=== PATIENT | female | born 1950 | race Asian ===

== ENCOUNTER 2022-12-22 05:30 | Emergency (ER) | payer SELFPAY ==
[~2022-12-22] VITALS: Ht 167.6 cm; Wt 63.0 kg
[2022-12-22 05:56] LABS: BASOPHILS % 0.6 % (0.0-2.0); HEMATOCRIT. 38.6 % (36.0-48.0); HEMOGLOBIN. 12.9 g/dL (12.0-16.0); LYMPHOCYTES % 25.7 % (20.0-50.0); MEAN CORPUSCULAR HEMOGLOBIN 28.7 pg (28.0-32.0); MEAN CORPUSCULAR VOLUME 85.7 fL (81.0-99.0); MONOCYTES % 8.5 % (2.0-8.0); NEUTROPHILS % 62.2 % (40.0-76.0); PLATELET 247 x1000/uL (130-400); RED BLOOD CELL COUNT 4.51 mill/uL (4.2-5.4); RED CELL DISTRIBUTION WIDTH 13.9 % (11.6-14.6)
[2022-12-22 06:04] LABS: CHLORIDE 105 mEq/L (98-107)
[2022-12-22 06:10] LABS: INR 0.9; PROTHROMBIN TIME 10.2 sec (9.6-11.0)
[2022-12-22 06:13] LABS: ETHANOL BLOOD < 10 mg/dL
[2022-12-22] MEDS ORDERED: IOHEXOL-350 100 ML BOTTLE ONE (07:02)
[2022-12-22] MEDS ORDERED: ONDANSETRON HCL 4MG/2ML INJ IV PRN (12:45)
[2022-12-22] MEDS ORDERED: IPRATROPIUM/ALBUTEROL 0.5-3(2.5)MG/3ML NEB HHN PRN (12:45)
[2022-12-22] MEDS ORDERED: CLONIDINE 0.1MG TABLET PO PRN (12:45)
[2022-12-22] MEDS ORDERED: ACETAMINOPHEN 325MG TABLET PO PRN ×2 (12:45)
[2022-12-22] MEDS ORDERED: MAGNESIUM/ALUMINUM HYDROXIDE/SIMETHICONE 30ML UDC PO PRN (12:45)
[2022-12-22] MEDS ORDERED: DEXTROSE 50% WATER 50ML SYRINGE IV PRN (12:45)
[2022-12-22] MEDS ORDERED: INSULIN LISPRO 100 UNITS/ML SUBCUT SCH ×2 (13:00→13:20)
[2022-12-22] MEDS ORDERED: BLOOD SUGAR DIAGNOSTIC STRIP TEST SCH (13:00)
[2022-12-22] MEDS ORDERED: ENOXAPARIN 30MG/0.3ML SYR SUBCUT SCH (13:00)
[2022-12-22] MEDS ORDERED: METOPROLOL TARTRATE 25MG TABLET PO NR (13:00)
[2022-12-22 14:00] VITALS: BP 155/88
[2022-12-22 14:54] LABS: FERRITIN 61 ng/mL (10-291)
[2022-12-22 15:03] LABS: VITAMIN B12 SERUM 625 pg/mL (211-911)
[2022-12-22] MEDS ORDERED: FAMOTIDINE 20MG/2ML VIAL IV SCH (21:00)
[2022-12-22] MEDS ORDERED: INSULIN GLARGINE 100 UNITS/ML SUBCUT SCH (22:00)
[2022-12-23] MEDS ORDERED: AMLODIPINE 10MG TABLET PO SCH (09:00)
== END 2022-12-22 14:13 | disposition left against medical advice (07) ==
LOC: ER 05:30 → CANBEDREQ 14:29
DX: R77.8 Other specified abnormalities of plasma proteins (principal); R55 Syncope and collapse
CPT/HCPCS: 36415; 70450; 70496; 70498; 71045; 80053; 80320; 82607; 82728; 82746; 82962; 83036; 84145; 84484; 85025; 85610; 93005; 93970; 96372; 99291; J1650; J1815; Q9967; G0480

== ENCOUNTER 2023-11-12 02:20 | Inpatient (IN) | payer MEDICAID ==
[~2023-11-12] VITALS: Ht 157.5 cm; Wt 53.5 kg
[2023-11-12] MEDS ORDERED: IPRATROPIUM BROMIDE (0.02%) 0.5MG/2.5ML NEB HHN STA (02:39)
[2023-11-12] MEDS ORDERED: ALBUTEROL (0.083%) 2.5MG/3ML NEB HHN STA (02:39)
[2023-11-12 03:52] LABS: BASOPHILS % 0.8 % (0.0-2.0); EOSINOPHILS % 0.9 % (0.0-5.0); HEMATOCRIT. 35.1 % (36.0-48.0); HEMOGLOBIN. 11.7 g/dL (12.0-16.0); LYMPHOCYTES % 13.3 % (20.0-50.0); MEAN CORPUSCULAR HEMOGLOBIN 28.6 pg (28.0-32.0); MEAN CORPUSCULAR HGB CONC 33.3 g/dL (31.0-37.0); MEAN PLATELET VOLUME 9.2 fl (7.4-10.4); PLATELET 216 x1000/uL (130-400); RED BLOOD CELL COUNT 4.09 mill/uL (4.2-5.4); RED CELL DISTRIBUTION WIDTH 14.6 % (11.6-14.6); WHITE BLOOD COUNT 13.2 x1000/uL (4.5-11.0)
[2023-11-12 03:53] LABS: BG CARBOXYHEMOGLOBIN 0.4 % (0.5-1.5); BG DEOXYHEMOGLOBIN 7.2 % (0.0-5.0); BG METHEMOGLOBIN 0.2 % (0.0-1.5); BG OXYGEN SATURATION 92.8 % (92.0-98.5); BG OXYHEMOGLOBIN 92.2 % (94.0-97.0); BG PCO2 32.9 mmHg (35.0-45.0); BG PO2 68.5 mmHg (75.0-100.0); BG SAMPLE SITE RIGHT BRACHIAL; BG TOTAL HEMOGLOBIN 12.2 g/dL (12.0-18.0); BG VENT MODE ROOM AIR
[2023-11-12 04:06] LABS: INR 0.9; PARTIAL THROMBOPLASTIN TIME 23.6 sec (23.4-31.0); PROTHROMBIN TIME 10.4 sec (9.6-11.0)
[2023-11-12] MEDS ORDERED: ALBUTEROL (0.083%) 2.5MG/3ML NEB HHN NR (04:15)
[2023-11-12 04:19] LABS: LACTIC ACID 2.6 mmol/L (0.4-2.0)
[2023-11-12 04:20] VITALS: PULSE 118; RESP 22; O2SAT 99
[2023-11-12] MEDS ORDERED: IPRATROPIUM BROMIDE (0.02%) 0.5MG/2.5ML NEB HHN NR (04:30)
[2023-11-12 04:50] LABS: ALANINE AMINOTRANSFERASE 22 IU/L (10-49); ALBUMIN 4.4 g/dL (3.2-4.8); ASPARTATE AMINOTRANSFERASE 39 IU/L (<34); BILIRUBIN TOTAL 0.4 mg/dL (0.1-1.0); CALCIUM 8.8 mg/dL (8.7-10.4); CARBON DIOXIDE 18 mEq/L (21-32); CHLORIDE 105 mEq/L (98-107); CREATININE 1.8 mg/dL (0.6-1.0); GLUCOSE 338 mg/dL (70-105); POTASSIUM 4.1 mEq/L (3.5-5.1); PROTEIN TOTAL 8.4 g/dL (6.0-8.3); SODIUM 135 mEq/L (136-145); UREA NITROGEN BLOOD 30 mg/dL (9-23)
[2023-11-12 04:56] LABS: ETHANOL BLOOD < 10 mg/dL (<10)
[2023-11-12 05:01] LABS: TROPONIN I HIGH SENSITIVITY 208 ng/L (3.0-34)
[2023-11-12] MEDS: ASPIRIN 325MG EC TABLET PO NR (05:15)
[2023-11-12] MEDS: HEPARIN 25,000 UNITS PREMIX 250 ML IV SCH (05:15)
[2023-11-12] MEDS: HEPARIN 60 UNITS/KG BOLUS IV NR (06:12)
[2023-11-12] MEDS ORDERED: INSULIN REGULAR (HUMULIN R) 300UNITS/3ML VIAL SUBCUT NR (06:15)
[2023-11-12] MEDS ORDERED: HEPARIN BOLUS PRN aPTT 30-44 IV (11:30)
[2023-11-12] MEDS ORDERED: HEPARIN BOLUS PRN aPTT <30 IV (11:30)
[2023-11-12 12:00] VITALS: BP 148/88; PULSE 106; RESP 18; TEMP 97.6
[2023-11-12] MEDS ORDERED: IPRATROPIUM/ALBUTEROL 0.5-3(2.5)MG/3ML NEB HHN PRN (12:00)
[2023-11-12] MEDS ORDERED: NITROGLYCERIN 0.4MG TABLET SL SL PRN (12:00)
[2023-11-12] MEDS ORDERED: ACETAMINOPHEN 325MG TABLET PO PRN ×2 (12:00)
[2023-11-12] MEDS ORDERED: DEXTROSE 50% WATER 50ML SYRINGE IV PRN (12:00)
[2023-11-12] MEDS: BLOOD SUGAR DIAGNOSTIC STRIP TEST SCH (12:40)
[2023-11-12] MEDS: PIPERACILLIN/TAZO 3.375G/50ML 50 ML IV SCH (13:00)
[2023-11-12] MEDS: INSULIN LISPRO 100 UNITS/ML SUBCUT SCH (14:04)
[2023-11-12 14:20] VITALS: BP 130/62; PULSE 110; RESP 20; TEMP 97.3
[2023-11-12] MEDS: METOPROLOL TARTRATE 25MG TABLET PO SCH (14:30)
[2023-11-12] MEDS ORDERED: FUROSEMIDE 20MG/2ML VIAL IVP SCH (14:45)
[2023-11-12 16:00] VITALS: BP 112/70; PULSE 120; RESP 18; TEMP 97.9
[2023-11-12 17:37] LABS: BETA HYDROXYBUTYRATE 0.3 mMol/L (0.0-0.3)
[2023-11-12] MEDS: ENOXAPARIN 60MG/0.6ML SYR SUBCUT SCH (19:05)
[2023-11-12 20:00] VITALS: BP 126/83; PULSE 114; RESP 18; TEMP 97.9
[2023-11-12] MEDS: ATORVASTATIN CALCIUM 40MG TABLET PO SCH (20:46)
[2023-11-12] MEDS: AMIODARONE HCL 200 MG TABLET PO SCH (21:11)
[2023-11-13] VITALS: BP 130/67; PULSE 112; RESP 18; TEMP 97.6
[2023-11-13 04:00] VITALS: BP 105/65; PULSE 108; RESP 18; TEMP 97.8
[2023-11-13 05:53] LABS: EOSINOPHILS % 2.3 % (0.0-5.0); HEMATOCRIT. 34.9 % (36.0-48.0); HEMOGLOBIN. 11.5 g/dL (12.0-16.0); LYMPHOCYTES % 17.8 % (20.0-50.0); MEAN CORPUSCULAR HEMOGLOBIN 28.5 pg (28.0-32.0); MEAN CORPUSCULAR HGB CONC 32.9 g/dL (31.0-37.0); MEAN CORPUSCULAR VOLUME 86.5 fL (81.0-99.0); MEAN PLATELET VOLUME 9.2 fl (7.4-10.4); MONOCYTES % 8.2 % (2.0-8.0); NEUTROPHILS % 70.7 % (40.0-76.0); PLATELET 219 x1000/uL (130-400); RED BLOOD CELL COUNT 4.03 mill/uL (4.2-5.4); RED CELL DISTRIBUTION WIDTH 15.1 % (11.6-14.6); WHITE BLOOD COUNT 11.1 x1000/uL (4.5-11.0)
[2023-11-13 06:19] LABS: CALCIUM 9.1 mg/dL (8.7-10.4); CARBON DIOXIDE 18 mEq/L (21-32); CHLORIDE 107 mEq/L (98-107); CREATININE 1.8 mg/dL (0.6-1.0); GLUCOSE 258 mg/dL (70-105); IRON 51 ug/dL (50-170); POTASSIUM 4.4 mEq/L (3.5-5.1); SODIUM 135 mEq/L (136-145); THYROID STIMULATING HORMONE 3.72 uIU/mL (0.55-4.78); TOTAL IRON BINDING CAPACITY 283 ug/dl (250-425); UREA NITROGEN BLOOD 28 mg/dL (9-23)
[2023-11-13 08:00] VITALS: BP 133/58; PULSE 106; RESP 18; TEMP 98.8
[2023-11-13 08:01] LABS: TROPONIN I HIGH SENSITIVITY 222 ng/L (3.0-34)
[2023-11-13] MEDS: ASPIRIN 81MG TABLET PO SCH (09:32)
[2023-11-13 10:28] LABS: FOLIC ACID (FOLATE) SERUM > 20.00 ng/mL (>5.38); VITAMIN B12 SERUM 620 pg/mL (211-911)
[2023-11-13] MEDS: AMIODARONE HCL 200 MG TABLET PO NR (11:03)
[2023-11-13] MEDS ORDERED: LIDOCAINE 2% 6ML GLYDO MM ONE (11:15)
[2023-11-13] MEDS ORDERED: TETRACAINE/BENZOCAINE/BUTAMBEN 20 GM SPRAY MM ONE (11:15)
[2023-11-13] MEDS ORDERED: FENTANYL CITRATE/PF 50MCG/ML 2ML VIAL ONE (11:54)
[2023-11-13] MEDS ORDERED: MIDAZOLAM HCL 2 MG/2 ML VIAL ONE ×2 (11:55→12:26)
[2023-11-13 12:00] VITALS: BP 136/70; PULSE 89; RESP 18; TEMP 98.7
[2023-11-13 16:00] VITALS: BP 124/76; PULSE 80; RESP 16; TEMP 98
[2023-11-13] MEDS: APIXABAN 2.5 MG TABLET PO SCH (17:35)
[2023-11-13 20:00] VITALS: BP 119/68; PULSE 78; RESP 18; TEMP 97.2
[2023-11-14] VITALS: BP 148/64; PULSE 69; RESP 20; TEMP 97.8
[2023-11-14 04:00] VITALS: BP 135/64; PULSE 67; RESP 18; TEMP 97.6
[2023-11-14 07:22] LABS: BASOPHILS % 0.4 % (0.0-2.0); EOSINOPHILS % 1.4 % (0.0-5.0); HEMATOCRIT. 33.9 % (36.0-48.0); HEMOGLOBIN. 11.2 g/dL (12.0-16.0); MEAN CORPUSCULAR HEMOGLOBIN 28.8 pg (28.0-32.0); MEAN CORPUSCULAR HGB CONC 33.1 g/dL (31.0-37.0); MEAN CORPUSCULAR VOLUME 87.1 fL (81.0-99.0); MEAN PLATELET VOLUME 9.2 fl (7.4-10.4); MONOCYTES % 8.1 % (2.0-8.0); NEUTROPHILS % 76.1 % (40.0-76.0); PLATELET 211 x1000/uL (130-400); RED BLOOD CELL COUNT 3.89 mill/uL (4.2-5.4); RED CELL DISTRIBUTION WIDTH 15.1 % (11.6-14.6); WHITE BLOOD COUNT 10.4 x1000/uL (4.5-11.0)
[2023-11-14] MEDS: INSULIN LISPRO 100 UNITS/ML SUBCUT SCH (07:40)
[2023-11-14 07:42] LABS: CALCIUM 8.8 mg/dL (8.7-10.4); POTASSIUM 4.4 mEq/L (3.5-5.1)
[2023-11-14 08:00] VITALS: BP 147/77; PULSE 81; RESP 20; TEMP 97.8
[2023-11-14] MEDS ORDERED: AMIODARONE HCL 200 MG TABLET PO SCH (09:00)
[2023-11-14 11:28] VITALS: BP 127/66; PULSE 69; RESP 18; TEMP 97.8
[2023-11-14] MEDS ORDERED: ASPI-1160 PO (11:43)
[2023-11-14] MEDS ORDERED: METO-396 PO (11:43)
[2023-11-14] MEDS ORDERED: APIX2.5T PO (11:43)
[2023-11-14] MEDS ORDERED: LIP40 PO (11:43)
[2023-11-14] MEDS ORDERED: LIP40 MT (12:56)
[2023-11-14] MEDS ORDERED: APIX2.5T MT (12:56)
[2023-11-14] MEDS ORDERED: ASPI-1497 MT (12:56)
[2023-11-14] MEDS ORDERED: METO-396 MT (12:56)
[2023-11-14] MEDS ORDERED: [UNRECOGNIZED DRUG - OTHER] (13:19)
[2023-11-14] MEDS ORDERED: METO25TA6 PO (13:19)
[2023-11-14] MEDS ORDERED: [UNRECOGNIZED DRUG - OTHER] (13:19)
[2023-11-14 15:08] VITALS: BP 127/66; PULSE 69; TEMP 97.8; O2SAT 99
[2023-11-14 16:32] VITALS: BP 136/74; PULSE 74; RESP 18; TEMP 97.7
[2023-11-14] MEDS ORDERED: PIPERACILLIN/TAZO 3.375G/50ML 50 ML IV SCH (21:00)
[2023-11-18] MEDS ORDERED: DAPA10TA7 (18:20)
[2023-11-18] MEDS ORDERED: LINA5TAB PO (18:20)
== END 2023-11-14 16:20 | disposition home or self-care (01) | DRG 720 ==
LOC: ER 02:20 → 7WST 06:03
PROVIDERS: ADMIT Internal Medicine; ATTEND Internal Medicine
PROC: 5A2204Z Restoration of Cardiac Rhythm, Single (ICD-10-PCS; principal; 2023-11-13)
PROC: B24BZZ4 Ultrasonography of Heart with Aorta, Transesophageal (ICD-10-PCS; 2023-11-13)
DX: A41.9 Sepsis, unspecified organism (principal); J96.01 Acute respiratory failure with hypoxia; I21.4 Non-ST elevation (NSTEMI) myocardial infarction; I13.2 Hypertensive heart and chronic kidney disease with heart failure and with stage 5 chronic kidney disease, or end stage renal disease; E87.20 Acidosis, unspecified; J18.9 Pneumonia, unspecified organism; N17.9 Acute kidney failure, unspecified; N18.6 End stage renal disease; E87.1 Hypo-osmolality and hyponatremia; I48.3 Typical atrial flutter; J44.0 Chronic obstructive pulmonary disease with (acute) lower respiratory infection; E11.65 Type 2 diabetes mellitus with hyperglycemia; Z20.822 Contact with and (suspected) exposure to COVID-19; I50.9 Heart failure, unspecified; D64.9 Anemia, unspecified; E11.22 Type 2 diabetes mellitus with diabetic chronic kidney disease; I25.10 Atherosclerotic heart disease of native coronary artery without angina pectoris; I44.0 Atrioventricular block, first degree; Z99.2 Dependence on renal dialysis; Z79.01 Long term (current) use of anticoagulants; Z79.4 Long term (current) use of insulin; Z79.82 Long term (current) use of aspirin; Z79.84 Long term (current) use of oral hypoglycemic drugs; Z79.899 Other long term (current) drug therapy; Z95.1 Presence of aortocoronary bypass graft; I25.2 Old myocardial infarction
CPT/HCPCS: 36415; 36600; 71045; 80048; 80053; 80061; 80320; 82010; 82375; 82607; 82746; 82805; 82962; 83036; 83540; 83550; 83605; 83880; 84145; 84443; 84484; 85025; 87426; 87804; 92960; 93005; 93306; 93312; 94644; 99285; C1893; J1644; J1650; J1815; J2250; J2543; J3010; G0480

== ENCOUNTER → 2023-12-14 | Outpatient (CLI) | payer MEDICAID ==
[~2023-12-14] MED LIST: APIX2.5T MT; ASPI-1497 MT; DAPA10TA7; LINA5TAB PO; LIP40 MT; METO-396 MT; [UNRECOGNIZED DRUG - OTHER]; [UNRECOGNIZED DRUG - OTHER]
[2023-12-14 09:20] LABS: POTASSIUM 4.7 mEq/L (3.5-5.1)
[2023-12-14 09:21] LABS: CALCIUM 9.4 mg/dL (8.7-10.4)
[2023-12-14 09:25] LABS: CREATININE 1.8 mg/dL (0.6-1.0)
== END | disposition home or self-care (01) ==
LOC: LAB 08:18
PROVIDERS: ATTEND Internal Medicine Cardiovascular Disease
DX: I48.92 Unspecified atrial flutter (principal); I50.9 Heart failure, unspecified; N18.9 Chronic kidney disease, unspecified
CPT/HCPCS: 36415; 80048

== ENCOUNTER 2024-08-01 13:53 | Inpatient (IN) | payer OTHER ==
[~2024-08-01] VITALS: Ht 162.6 cm; Wt 60.8 kg
[~2024-08-01 13:53] MED LIST changes: +AMI2 PO; +HYDR50TA39 PO
[2024-08-01 15:14] LABS: BASOPHILS % 0.5 % (0.0-2.0); EOSINOPHILS % 0.8 % (0.0-5.0); HEMATOCRIT. 37.9 % (36.0-48.0); HEMOGLOBIN. 11.9 g/dL (12.0-16.0); LYMPHOCYTES % 10.5 % (20.0-50.0); MEAN CORPUSCULAR HGB CONC 31.4 g/dL (31.0-37.0); MEAN CORPUSCULAR VOLUME 86.1 fL (81.0-99.0); MEAN PLATELET VOLUME 8.4 fl (7.4-10.4); MONOCYTES % 9.4 % (2.0-8.0); NEUTROPHILS % 78.8 % (40.0-76.0); PLATELET 264 x1000/uL (130-400); RED CELL DISTRIBUTION WIDTH 16.5 % (11.6-14.6); WHITE BLOOD COUNT 10.1 x1000/uL (4.5-11.0)
[2024-08-01 15:18] LABS: CHLORIDE 111 mEq/L (98-107); POTASSIUM 5.2 mEq/L (3.5-5.1); SODIUM 143 mEq/L (136-145)
[2024-08-01 15:19] LABS: CALCIUM 9.5 mg/dL (8.7-10.4); CARBON DIOXIDE 24 mEq/L (21-32)
[2024-08-01 15:24] LABS: GLUCOSE 134 mg/dL (70-105); UREA NITROGEN BLOOD 36 mg/dL (9-23)
[2024-08-01 15:26] LABS: ALANINE AMINOTRANSFERASE 157 IU/L (10-49); ALBUMIN 4.2 g/dL (3.2-4.8); ASPARTATE AMINOTRANSFERASE 60 IU/L (<34); BILIRUBIN DIRECT 0.1 mg/dL (<=3.0)
[2024-08-01 15:27] LABS: BILIRUBIN TOTAL 0.3 mg/dL (0.1-1.0); PROTEIN TOTAL 7.5 g/dL (6.0-8.3)
[2024-08-01 15:29] LABS: THYROID STIMULATING HORMONE 6.06 uIU/mL (0.55-4.78)
[2024-08-01 15:48] LABS: CREATININE 2.4 mg/dL (0.6-1.0); TROPONIN I HIGH SENSITIVITY 134 ng/L (3.0-34)
[2024-08-01] MEDS ORDERED: FUROSEMIDE 100MG/10ML VIAL IV STA (15:49)
[2024-08-01] MEDS ORDERED: SODIUM ZIRCONIUM CYCLOSILICATE 10GM/PACKET PO ONE (16:00)
[2024-08-01] MEDS ORDERED: INSULIN REGULAR (HUMULIN R) 1000UNITS/10ML VIAL IV ONE (16:00)
[2024-08-01] MEDS ORDERED: ALBUTEROL (0.083%) 2.5MG/3ML NEB HHN ONE (16:00)
[2024-08-01] MEDS ORDERED: DEXTROSE 50% WATER 50ML SYRINGE IV ONE (16:00)
[2024-08-01] MEDS: FUROSEMIDE 40MG/4ML VIAL IV NR (16:15)
[2024-08-01 16:37] VITALS: PULSE 88; RESP 20
[2024-08-01] MEDS: ALBUTEROL (0.083%) 2.5MG/3ML NEB HHN NR (16:37)
[2024-08-01] MEDS: DEXTROSE 50% WATER 50ML SYRINGE IV NR (17:49)
[2024-08-01] MEDS: INSULIN REGULAR (HUMULIN R) 1000UNITS/10ML VIAL IV NR (17:49)
[2024-08-01] MEDS: CLOPIDOGREL 75MG TABLET PO ONE (17:55)
[2024-08-01] MEDS: ASPIRIN 325MG EC TABLET PO ONE (17:56)
[2024-08-01] MEDS: SODIUM ZIRCONIUM CYCLOSILICATE 10GM/PACKET PO NR (17:56)
[2024-08-01 22:15] VITALS: BP 141/78; PULSE 86; RESP 20; TEMP 36.8072
[2024-08-02] MEDS ORDERED: ONDANSETRON HCL 4MG/2ML INJ IV PRN (00:30)
[2024-08-02] MEDS ORDERED: ACETAMINOPHEN 325MG TABLET PO PRN (00:30)
[2024-08-02] MEDS ORDERED: IPRATROPIUM/ALBUTEROL 0.5-3(2.5)MG/3ML NEB HHN PRN (00:30)
[2024-08-02] MEDS ORDERED: MAGNESIUM/ALUMINUM HYDROXIDE/SIMETHICONE 30ML UDC PO PRN (00:30)
[2024-08-02] MEDS ORDERED: CLONIDINE 0.1MG TABLET PO PRN (00:30)
[2024-08-02] MEDS ORDERED: DOCUSATE SODIUM 100MG CAPSULE PO PRN (00:30)
[2024-08-02] MEDS ORDERED: HYDROCODONE/ACETAMINOPHEN 5/325MG TABLET PO PRN (00:30)
[2024-08-02] MEDS ORDERED: DEXTROSE 50% WATER 50ML SYRINGE IV PRN ×2 (02:15)
[2024-08-02 04:00] VITALS: BP 121/69; PULSE 89; RESP 18; TEMP 36.55848; O2SAT 97
[2024-08-02] MEDS: BLOOD SUGAR DIAGNOSTIC STRIP TEST SCH (06:05)
[2024-08-02 06:15] LABS: CLARITY URINE CLEAR (CLEAR); COLOR URINE YELLOW (YELLOW); GLUCOSE URINE 3+ (NEGATIVE); KETONES URINE NEGATIVE (NEGATIVE); LEUKOCYTE ESTERASE URINE NEGATIVE (NEGATIVE); NITRITE URINE NEGATIVE (NEGATIVE); OCCULT BLOOD URINE NEGATIVE (NEGATIVE); PH URINE 5.5 (4.5-8.0); PROTEIN URINE TRACE (NEGATIVE); SPECIFIC GRAVITY URINE 1.015 (1.005-1.030); UROBILINOGEN URINE 0.2 E.U./dL (0.2-1.0)
[2024-08-02 06:27] LABS: *AMPHETAMINES SCREEN URINE NEGATIVE (NEGATIVE); *BARBITURATES SCREEN URINE NEGATIVE (NEGATIVE); *BENZODIAZEPINES SCREEN URINE NEGATIVE (NEGATIVE); *COCAINE SCREEN URINE NEGATIVE (NEGATIVE); METHADONE URINE SCREEN NEGATIVE (NEGATIVE)
[2024-08-02 06:28] LABS: CANNABINOID URINE SCREEN NEGATIVE (NEGATIVE); ECSTASY MDMA SCREEN URINE NEGATIVE (NEGATIVE); OPIATES URINE SCREEN NEGATIVE (NEGATIVE); PHENCYCLIDINE URINE SCREEN NEGATIVE (NEGATIVE)
[2024-08-02 06:49] LABS: SQUAMOUS EPITHELIAL CELL URINE FEW /lpf (RARE/1+)
[2024-08-02 06:54] LABS: BACTERIA URINE NONE SEEN
[2024-08-02] MEDS: INSULIN LISPRO 100 UNITS/ML SUBCUT SCH (06:56)
[2024-08-02 08:00] VITALS: BP 127/67; PULSE 85; RESP 18; TEMP 36.114; O2SAT 99
[2024-08-02] MEDS: ENOXAPARIN 30MG/0.3ML SYR SUBCUT SCH ×2 (08:48→12:31)
[2024-08-02] MEDS: FUROSEMIDE 20MG/2ML VIAL IVP SCH (11:50)
[2024-08-02 12:00] VITALS: BP 123/73; PULSE 68; RESP 20; TEMP 36.22512; O2SAT 96
[2024-08-02] MEDS ORDERED: ENOXAPARIN 60MG/0.6ML SYR SUBCUT SCH (12:00)
[2024-08-02] MEDS ORDERED: NALOXONE HCL 0.4MG/ML VIAL IV PRN (14:15)
[2024-08-02 16:00] VITALS: BP 133/73; PULSE 85; RESP 18; TEMP 36.44736; O2SAT 99
[2024-08-02 17:19] LABS: CARBON DIOXIDE 25 mEq/L (21-32); CHLORIDE 109 mEq/L (98-107); POTASSIUM 4.3 mEq/L (3.5-5.1); SODIUM 143 mEq/L (136-145)
[2024-08-02 17:20] LABS: BASOPHILS % 0.5 % (0.0-2.0); CALCIUM 9.5 mg/dL (8.7-10.4); DIFFERENTIAL COMMENT 0; EOSINOPHILS % 1.1 % (0.0-5.0); HEMATOCRIT. 36.5 % (36.0-48.0); HEMOGLOBIN. 11.2 g/dL (12.0-16.0); LYMPHOCYTES % 11.2 % (20.0-50.0); MEAN CORPUSCULAR HEMOGLOBIN 26.4 pg (28.0-32.0); MEAN CORPUSCULAR HGB CONC 30.6 g/dL (31.0-37.0); MEAN CORPUSCULAR VOLUME 86.5 fL (81.0-99.0); MEAN PLATELET VOLUME 8.6 fl (7.4-10.4); MONOCYTES % 8.5 % (2.0-8.0); NEUTROPHILS % 78.7 % (40.0-76.0); PLATELET 262 x1000/uL (130-400); PROTHROMBIN TIME 11.4 sec (9.6-11.0); RED BLOOD CELL COUNT 4.22 mill/uL (4.2-5.4); RED CELL DISTRIBUTION WIDTH 16.3 % (11.6-14.6); WHITE BLOOD COUNT 11.5 x1000/uL (4.5-11.0)
[2024-08-02 17:23] LABS: CREATINE KINASE MB FRACTION 2.6 ng/mL (0.5-3.6)
[2024-08-02 17:24] LABS: CREATININE 2.3 mg/dL (0.6-1.0); GLUCOSE 138 mg/dL (70-105)
[2024-08-02 17:25] LABS: LDL CHOLESTEROL 51 mg/dL (5-100); TRIGLYCERIDE 76 mg/dL (0-150); UREA NITROGEN BLOOD 33 mg/dL (9-23)
[2024-08-02 17:26] LABS: ALANINE AMINOTRANSFERASE 132 IU/L (10-49); ALBUMIN 4.1 g/dL (3.2-4.8); ASPARTATE AMINOTRANSFERASE 47 IU/L (<34); CHOLESTEROL 121 mg/dL (<200); CREATINE KINASE 68 IU/L (34-145)
[2024-08-02 17:27] LABS: BILIRUBIN DIRECT 0.2 mg/dL (<=3.0); BILIRUBIN TOTAL 0.4 mg/dL (0.1-1.0); HDL CHOLESTEROL 52 mg/dL (>65); PHOSPHORUS 4.3 mg/dL (2.5-4.9); PROTEIN TOTAL 7.5 g/dL (6.0-8.3)
[2024-08-02 17:29] LABS: T4 FREE 1.76 ng/dL (0.89-1.76)
[2024-08-02 17:48] LABS: TROPONIN I HIGH SENSITIVITY 137 ng/L (3.0-34)
[2024-08-02 20:00] VITALS: BP 126/72; PULSE 86; RESP 18; TEMP 36.6696; O2SAT 97
[2024-08-03] VITALS: BP 128/66; PULSE 79; RESP 18; TEMP 36.89184; O2SAT 98
[2024-08-03 04:00] VITALS: BP 140/78; PULSE 83; RESP 20; TEMP 36.6696; O2SAT 98
[2024-08-03 06:51] LABS: BASOPHILS % 0.6 % (0.0-2.0); EOSINOPHILS % 1.9 % (0.0-5.0); HEMATOCRIT. 34.9 % (36.0-48.0); HEMOGLOBIN. 11.2 g/dL (12.0-16.0); LYMPHOCYTES % 13.8 % (20.0-50.0); MEAN CORPUSCULAR HEMOGLOBIN 27.5 pg (28.0-32.0); MEAN CORPUSCULAR HGB CONC 32.3 g/dL (31.0-37.0); MEAN CORPUSCULAR VOLUME 85.2 fL (81.0-99.0); MEAN PLATELET VOLUME 8.7 fl (7.4-10.4); MONOCYTES % 10.9 % (2.0-8.0); NEUTROPHILS % 72.8 % (40.0-76.0); PLATELET 233 x1000/uL (130-400); RED BLOOD CELL COUNT 4.09 mill/uL (4.2-5.4); RED CELL DISTRIBUTION WIDTH 15.9 % (11.6-14.6); WHITE BLOOD COUNT 8.8 x1000/uL (4.5-11.0)
[2024-08-03 06:58] LABS: CHLORIDE 107 mEq/L (98-107); POTASSIUM 4.6 mEq/L (3.5-5.1); SODIUM 141 mEq/L (136-145)
[2024-08-03 06:59] LABS: CALCIUM 9.2 mg/dL (8.7-10.4); CARBON DIOXIDE 23 mEq/L (21-32)
[2024-08-03 07:03] LABS: TRIGLYCERIDE 72 mg/dL (0-150)
[2024-08-03 07:04] LABS: CREATININE 2.2 mg/dL (0.6-1.0); GLUCOSE 157 mg/dL (70-105); PROTEIN TOTAL 6.3 g/dL (6.0-8.3)
[2024-08-03 07:05] LABS: LDL CHOLESTEROL 46 mg/dL (5-100); UREA NITROGEN BLOOD 29 mg/dL (9-23)
[2024-08-03 07:06] LABS: ALANINE AMINOTRANSFERASE 110 IU/L (10-49); ALBUMIN 3.5 g/dL (3.2-4.8); ASPARTATE AMINOTRANSFERASE 41 IU/L (<34); BILIRUBIN DIRECT 0.3 mg/dL (<=3.0); CHOLESTEROL 110 mg/dL (<200); HDL CHOLESTEROL 49 mg/dL (>65); PHOSPHORUS 4.1 mg/dL (2.5-4.9); T4 FREE 1.71 ng/dL (0.89-1.76)
[2024-08-03 07:07] LABS: BILIRUBIN TOTAL 0.6 mg/dL (0.1-1.0)
[2024-08-03 08:00] VITALS: BP 115/80; PULSE 93; RESP 18; TEMP 36.55848; O2SAT 100
[2024-08-03 08:22] LABS: TROPONIN I HIGH SENSITIVITY 146 ng/L (3.0-34)
[2024-08-03] MEDS: FAMOTIDINE 20MG/2ML VIAL IV SCH (09:24)
[2024-08-03 12:00] VITALS: BP 152/78; PULSE 82; RESP 18; TEMP 36.50292; O2SAT 98
[2024-08-03] MEDS: ENOXAPARIN 60MG/0.6ML SYR SUBCUT SCH (12:54)
[2024-08-03 16:00] VITALS: BP 128/75; PULSE 89; RESP 18; TEMP 36.50292; O2SAT 98
[2024-08-03 20:00] VITALS: BP 142/76; PULSE 84; RESP 18; TEMP 36.50292; O2SAT 100
[2024-08-04] VITALS: BP 130/68; PULSE 72; RESP 18; TEMP 36.72516; O2SAT 100
[2024-08-04 04:00] VITALS: BP 125/69; PULSE 90; RESP 18; TEMP 36.61404; O2SAT 99
[2024-08-04 07:49] LABS: CHLORIDE 107 mEq/L (98-107); POTASSIUM 4.8 mEq/L (3.5-5.1); SODIUM 142 mEq/L (136-145)
[2024-08-04 07:51] LABS: CARBON DIOXIDE 26 mEq/L (21-32)
[2024-08-04 07:52] LABS: CALCIUM 9.5 mg/dL (8.7-10.4)
[2024-08-04 07:56] LABS: CREATININE 2.4 mg/dL (0.6-1.0); UREA NITROGEN BLOOD 29 mg/dL (9-23)
[2024-08-04 07:57] LABS: GLUCOSE 160 mg/dL (70-105)
[2024-08-04 07:58] LABS: ALANINE AMINOTRANSFERASE 90 IU/L (10-49); ALBUMIN 3.8 g/dL (3.2-4.8); ASPARTATE AMINOTRANSFERASE 31 IU/L (<34)
[2024-08-04 07:59] LABS: BILIRUBIN DIRECT 0.3 mg/dL (<=3.0); BILIRUBIN TOTAL 0.7 mg/dL (0.1-1.0); PHOSPHORUS 3.7 mg/dL (2.5-4.9); PROTEIN TOTAL 6.8 g/dL (6.0-8.3)
[2024-08-04 08:00] VITALS: BP 139/73; PULSE 85; RESP 19; TEMP 36.61404; O2SAT 98
[2024-08-04 09:08] LABS: BASOPHILS % 0.6 % (0.0-2.0); EOSINOPHILS % 2.2 % (0.0-5.0); HEMATOCRIT. 35.8 % (36.0-48.0); HEMOGLOBIN. 11.4 g/dL (12.0-16.0); LYMPHOCYTES % 15.8 % (20.0-50.0); MEAN CORPUSCULAR HEMOGLOBIN 27.2 pg (28.0-32.0); MEAN CORPUSCULAR HGB CONC 31.8 g/dL (31.0-37.0); MEAN CORPUSCULAR VOLUME 85.5 fL (81.0-99.0); MEAN PLATELET VOLUME 8.6 fl (7.4-10.4); MONOCYTES % 11.2 % (2.0-8.0); NEUTROPHILS % 70.2 % (40.0-76.0); PLATELET 251 x1000/uL (130-400); RED BLOOD CELL COUNT 4.19 mill/uL (4.2-5.4); WHITE BLOOD COUNT 9.3 x1000/uL (4.5-11.0)
[2024-08-04 12:00] VITALS: BP 139/49; PULSE 84; RESP 19; TEMP 36.72516; O2SAT 95
[2024-08-04 15:42] VITALS: BP 115/62; PULSE 60; RESP 20; TEMP 36.61404; O2SAT 97
[2024-08-04 20:45] VITALS: BP 128/60; PULSE 88; RESP 18; TEMP 36.50292; O2SAT 98
[2024-08-05 00:52] VITALS: BP 115/69; PULSE 90; RESP 18; TEMP 36.61404; O2SAT 100
[2024-08-05 04:47] VITALS: BP 138/72; PULSE 91; RESP 18; TEMP 36.72516; O2SAT 99
[2024-08-05 07:39] LABS: POTASSIUM 4.1 mEq/L (3.5-5.1)
[2024-08-05 07:40] LABS: CALCIUM 9.2 mg/dL (8.7-10.4)
[2024-08-05 07:45] LABS: CREATININE 2.3 mg/dL (0.6-1.0)
[2024-08-05 08:00] VITALS: BP 149/69; PULSE 85; RESP 18; TEMP 37.11408
[2024-08-05 08:50] LABS: BASOPHILS % 0.7 % (0.0-2.0); EOSINOPHILS % 3.6 % (0.0-5.0); HEMATOCRIT. 36.4 % (36.0-48.0); HEMOGLOBIN. 11.5 g/dL (12.0-16.0); LYMPHOCYTES % 18.6 % (20.0-50.0); MEAN CORPUSCULAR HEMOGLOBIN 27.1 pg (28.0-32.0); MEAN CORPUSCULAR HGB CONC 31.5 g/dL (31.0-37.0); MEAN CORPUSCULAR VOLUME 85.9 fL (81.0-99.0); MEAN PLATELET VOLUME 8.4 fl (7.4-10.4); MONOCYTES % 14.9 % (2.0-8.0); NEUTROPHILS % 62.2 % (40.0-76.0); PLATELET 258 x1000/uL (130-400); RED BLOOD CELL COUNT 4.24 mill/uL (4.2-5.4); RED CELL DISTRIBUTION WIDTH 16.4 % (11.6-14.6)
[2024-08-05 12:00] VITALS: BP 143/69; PULSE 85; RESP 18; TEMP 36.3918; O2SAT 100
[2024-08-05] MEDS ORDERED: FURO40TA5 MT (15:24)
[2024-08-05 16:00] VITALS: BP 125/64; PULSE 88; RESP 17; TEMP 37.05852; O2SAT 100
[2024-08-05 17:08] VITALS: BP 125/64; PULSE 66; TEMP 98.7; O2SAT 100
[2024-08-06] MEDS ORDERED: FUROSEMIDE 40MG TABLET PO SCH (09:00)
== END 2024-08-05 18:00 | disposition home or self-care (01) | DRG 190 ==
LOC: ER 13:53 → EDBEDREQ 14:59 → 8WST 16:10 → EDBEDREQTM 16:18 → EDBEDREQ 16:18
PROVIDERS: ADMIT Family Medicine Adult Medicine; ATTEND Family Medicine Adult Medicine
DX: I21.4 Non-ST elevation (NSTEMI) myocardial infarction (principal); I50.23 Acute on chronic systolic (congestive) heart failure; N17.9 Acute kidney failure, unspecified; I48.92 Unspecified atrial flutter; E11.22 Type 2 diabetes mellitus with diabetic chronic kidney disease; E78.5 Hyperlipidemia, unspecified; E87.5 Hyperkalemia; D64.9 Anemia, unspecified; I13.0 Hypertensive heart and chronic kidney disease with heart failure and stage 1 through stage 4 chronic kidney disease, or unspecified chronic kidney disease; I25.10 Atherosclerotic heart disease of native coronary artery without angina pectoris; I48.91 Unspecified atrial fibrillation; N18.4 Chronic kidney disease, stage 4 (severe); R74.01 Elevation of levels of liver transaminase levels; I25.2 Old myocardial infarction; Z95.1 Presence of aortocoronary bypass graft; Z95.810 Presence of automatic (implantable) cardiac defibrillator
CPT/HCPCS: 36415; 71045; 76700; 80048; 80061; 80076; 80305; 81003; 82550; 82553; 82962; 83036; 83735; 83880; 84100; 84439; 84443; 84480; 84484; 85025; 93005; 93306; 93880; 93970; 94640; 97162; 99285; C1893; J1650; J1815; J1940; J3490